=== PATIENT | male | born 1955 | race Hispanic/Latino ===

== ENCOUNTER → 2017-07-03 12:48 | Outpatient (CLI) | payer BC, SELFPAY ==
[2017-07-03 14:14] LABS: Absolute Lymphocyte Count 2.64 X10^3/ul (0.83-4.51); Absolute Neutrophil Count 4.7 X10^3/uL (2.0-7.7); Basophil# 0.01 X10^3/uL; Basophil% 0.1 % (0-1); Eosinophil# 0.09 X10^3/uL; Eosinophils% 1.1 % (0-5); Hemoglobin 15.7 g/dl (13.0-16.5); Lymphocyte # 2.64 X10^3/ul (4.0); Mean Corp Hgb Conc 33.4 g/gl (32-36); Mean Corpuscular Volume 92.9 fL (80-94); Mean Platelet Vol. 11.6 fl (6.2-12.0); Monocyte# 0.58 X10^3/uL; Monocyte% 7.3 % (0-10); Neutrophil # 4.65 X10^3/uL (2.7-7.7); Neutrophil % 58.1 % (47-70); Platelet Count 175 K/mm3 (150-450); RBC Distribution Width CV 13.7 % (11.6-14.6); RBC Distribution Width SD 46.5 fl (35.1-43.9); Red Blood Count 5.06 M/mm3 (4.6-6.2)
[2017-07-03 14:15] LABS: POSITIVE COUNT NO; POSITIVE DIFFERENTIAL NO; POSITIVE MORPHOLOGY NO
[2017-07-03 14:31] LABS: AST(SGOT) 23 U/L (15-37); Alanine Aminotransfer ALT/SGPT 41 U/L (16-61); Albumin, Serum 4.3 g/dL (3.2-5.0); Alkaline Phosphatase 84 U/L (45-117); Bilirubin, Direct 0.12 mg/dL (0.00-0.30); Creatinine, Serum 0.63 mg/dL (0.70-1.30); EST Glomerular Filtration Rate 135 mL/min (>60); Est Glom Filt Rate - Afr Amer 164 mL/min (>60); Globulin 3.3 g/dL (2.2-4.2); Protein, Total 7.6 g/dL (6.4-8.2)
== END ==
PROVIDERS: Family Provider Internal Medicine; PCP Internal Medicine; Visit Provider Internal Medicine Rheumatology
DX: Z79.899 Other long term (current) drug therapy (principal)
CPT/HCPCS: 36415; 80076; 82565; 85025

== ENCOUNTER → 2017-08-16 10:03 | Outpatient (CLI) | payer BC, SELFPAY ==
[2017-08-16 12:33] LABS: ALB/GLOB Ratio 1.4 RATIO (0.9-2.4); AST(SGOT) 22 U/L (15-37); Alanine Aminotransfer ALT/SGPT 37 U/L (16-61); Albumin, Serum 4.4 g/dL (3.2-5.0); Alkaline Phosphatase 81 U/L (45-117); Anion Gap 5 (5-15); BUN 17 mg/dL (7-18); BUN/Creat Ratio 25.1 RATIO (10-20); Chloride 105 mmol/L (98-107); Creatinine, Serum 0.68 mg/dL (0.70-1.30); EST Glomerular Filtration Rate 125 mL/min (>60); Est Glom Filt Rate - Afr Amer 152 mL/min (>60); Globulin 3.2 g/dL (2.2-4.2); Glucose 117 mg/dL (74-106); Potassium 3.8 mmol/L (3.5-5.1); Protein, Total 7.6 g/dL (6.4-8.2); Sodium Level 137 mmol/L (136-145)
[2017-08-16 12:35] LABS: Absolute Lymphocyte Count 2.87 X10^3/ul (0.83-4.51); Absolute Neutrophil Count 3.3 X10^3/uL (2.0-7.7); Basophil# 0.01 X10^3/uL; Basophil% 0.1 % (0-1); Eosinophil# 0.08 X10^3/uL; Eosinophils% 1.1 % (0-5); Hematocrit 49.3 % (40-54); Hemoglobin 16.7 g/dl (13.0-16.5); Lymphocyte # 2.87 X10^3/ul (4.0); Lymphocyte % 40.7 % (19-41); Mean Corp Hgb Conc 33.9 g/gl (32-36); Mean Corpuscular Hgb 31.3 pg (27.0-32.0); Mean Corpuscular Volume 92.5 fL (80-94); Monocyte# 0.71 X10^3/uL; Monocyte% 10.1 % (0-10); Neutrophil # 3.34 X10^3/uL (2.7-7.7); Neutrophil % 47.4 % (47-70); POSITIVE COUNT NO; POSITIVE DIFFERENTIAL NO; POSITIVE MORPHOLOGY NO; Platelet Count 157 K/mm3 (150-450); RBC Distribution Width CV 13.6 % (11.6-14.6); RBC Distribution Width SD 44.9 fl (35.1-43.9); Red Blood Count 5.33 M/mm3 (4.6-6.2); White Blood Count 7.1 K/mm3 (4.4-11.0)
== END ==
PROVIDERS: Family Provider Internal Medicine; PCP Internal Medicine
DX: M05.741 Rheumatoid arthritis with rheumatoid factor of right hand without organ or systems involvement (principal); M05.742 Rheumatoid arthritis with rheumatoid factor of left hand without organ or systems involvement
CPT/HCPCS: 36415; 80053; 85025

== ENCOUNTER → 2020-09-12 10:07 | Outpatient (CLI) | payer BC, SELFPAY ==
--- NOTE | 2020-09-12 10:45 | MRI_ITS ---
STUDY: MR PELVIS WITH AND WITHOUT CONTRAST (PROSTATE) REASON FOR EXAM: Male, 64 years old. Elevated PSA TECHNIQUE: Standardized multiparametric prostate MRI with T1, T2, DWI/ADC sequences were obtained in 3 orthogonal planes, and dynamic contrast enhancement sequences. 19 ml of Dotarem contrast material was administered intravenously for the contrast portion of the examination. COMPARISON: None. FINDINGS: The prostate volume measures 49.6 mm3. The contours of the prostate gland are smooth. There is mass effect on the bladder base. The transition zone is homogenous. 10 x 10 mm ill-defined nodule in the right posterior lateral transitional zone of the prostate apex (image 17 series 7) with ill-defined contrast enhancement (image 28 series 13) and focal restricted diffusion (image 107 series 9). PI-RADS DWI score 4 - Focal markedly hypointense on ADC and markedly hyperintense on high b-value DWI; < 1.5 cm on axial. PI-RADS T2W score 4 - Non-circumscribed, homogeneous, moderately hypointense, and <1.5 cm in greatest dimension. Contrast enhancement (+) Focal, earlier or contemporaneous with enhancement of adjacent normal prostatic tissues, and corresponding to a suspicious finding on T2WI and/or DWI. The peripheral zone is homogenous. PI-RADS DWI score 2 - Linear/wedge shaped hypointense on ADC and/or linear/wedge shaped hyperintense on high b-value DWI. PI-RADS T2W score 2 - Linear, wedge-shaped, or diffuse mild hypointensity, usually with indistinct margin. Contrast enhancement no early or contemporaneous enhancement; or diffuse multifocal enhancement NOT corresponding to a focal finding on T2W and/or DWI or focal enhancement responding to a lesion demonstrating features of BPH onT2WI (including features of extruded BPH in the PZ). The seminal vesicles demonstrate normal margins and T2 signal pattern. No mass lesion or invasion depicted. The rectoprostatic angles are normal. Urinary bladder is normal without wall thickening. The vascular structures of the are normal. The visualized hollow viscus structures are normal. No bone marrow edema or mass lesion depicted. MRI/Pelvis W/WO Contrast IMPRESSION: 1. PIRADS v2.1 2019 -- 4 - High (clinically significant cancer is likely). 10 x 10 mm right posterolateral apical hypointense T2 nodule with restricted diffusion and contrast enhancement. Electronically Signed: Romero Jimenez MD (Brooks) at 9:30 EDT , Service support ,
[2020-09-12 11:16] LABS: CREATININE FINGERSTICK 0.8 mg/dL (0.70-1.30); EGFR FINGERSTICK > 60.0000 mL/min (>60)
== END ==
PROVIDERS: PCP Internal Medicine; Referring Provider Urology; Visit Provider Urology
DX: R97.20 Elevated prostate specific antigen [PSA] (principal)
CPT/HCPCS: 72197; A9575

== ENCOUNTER 2020-12-21 10:10 | Day surgery (SDC) | payer BC, SELFPAY ==
--- NOTE | 2020-12-16 09:18 | EKG12_ITS ---
Test Reason : PRE OP Blood Pressure : / mmHG Vent. Rate : 083 BPM Atrial Rate : 083 BPM P-R Int : 134 ms QRS Dur : 140 ms QT Int : 420 ms P-R-T Axes : 055 074 076 degrees QTc Int : 493 ms Normal sinus rhythm Tvlok-Axxupwdky-Opupu Abnormal ECG Confirmed by CHRIS BURRIS, DEBORA ([id number]), visual effects editor THANIA BARRON ([id number]) on 12/19/2020 1:09:44 PM Referred By: Suhas Solis Confirmed By:DEBORA PEREZ MD
[2020-12-16 10:42] LABS: Anion Gap 3 (5-15); BUN 21 mg/dL (7-18); BUN/Creat Ratio 34.4 RATIO (10-20); Chloride 106 mmol/L (98-107); Creatinine, Serum 0.61 mg/dL (0.70-1.30); EST Glomerular Filtration Rate 140 mL/min (>60); Est Glom Filt Rate - Afr Amer 170 mL/min (>60); Glucose 131 mg/dL (74-106); Potassium 3.9 mmol/L (3.5-5.1); Sodium Level 137 mmol/L (136-145)
[2020-12-16 10:50] LABS: Hemoglobin A1c 8.7 % (3.8-5.6)
[2020-12-21] VITALS (7 sets, daily range): BP systolic 117–164; BP diastolic 72–87; PULSE 69–83; RESP 16–18; TEMP 35.9–36.9; O2SAT 95–97; BMI 29.2
[2020-12-21] MEDS: Lactated Ringers 1,000 ML 100 ML IV ×2 (10:52→14:45)
[2020-12-21 11:11] LABS: Bedside Glucose 177 mg/dL (70-110)
--- NOTE | 2020-12-21 12:30 | PROS_PTH ---
PATIENT: ANTON RUTLEDGE LOC: [facility] [place] U#:[id number] AGE/SX: 65/M ROOM: RE12/21/[address]: Dr. Suhas Solis MD : [id number] BED: DIS: 12/21/2020 SPEC #: [id number] RECD: 12/22/20 08:48 STATUS: TONY SANCHEZ #: [id number] CURTIS: 12/21/20 12:[address]: Suhas Solis DEPT: SURGICAL PATHOLOGY RECD BY: Sarah Min ENTERED: 12/22/20 10:08 SP TYPE: TURP OTHR DR: Dr. Ross Flynn, DO Tissues: Prostate, NOS Procedures: Surgery Specimen Level IV HEADER OPERATION: Cysto, TUR prostate, Olympus PRE-OP DIAGNOSIS: BPH TISSUE SUBMITTED: Prostate tissue MICROSCOPIC DIAGNOSIS Prostate tissue, TUR: Benign prostatic hyperplasia, glandular and stromal type. A fragment of stone (grossly only). SJ:[place] 12/23/2020 MICROSCOPIC DESCRIPTION Slides are reviewed. GROSS DESCRIPTION Received is one container labeled with the patient's name and designated prostate tissue. The specimen consists of multiple irregular fragments of pink-ortiz, rubbery, soft tissue that in aggregate weigh 3.2 gm and measure in aggregate 3 x 3 x 0.5 cm. A fragment of ortiz-brown stone is also noted measuring 0.5 x 0.4 x 0.3 cm. The entire soft tissue is submitted in three cassettes. The stone is for gross identification only. / ADRIANA:[place] 12/22/20 TC:5 CPT: 40063
[2020-12-21] MEDS: Cefazolin 2 GM in 0.9% Normal Saline 100 ML IV (13:21)
--- NOTE | 2020-12-21 13:21 | PCM.HP.STD ---
HPI - General HPI Narrative ANTON RUTLEDGE, is a 65 M who presents for transurethral resection of the prostate BPH with obstruction ` PFSH Medical History (Updated 12/21/20 @ 13:[address] Suhas Solis MD) Alcohol use Arthritis Diabetes Former smoker Gastric reflux High cholesterol History of diverticulitis History of irregular heartbeat History of ulceration Hx of thyroid nodule Hypertension Rash Rheumatoid arthritis Wears glasses Home Medications Farxiga 5 mg PO DAILY 09/04/16 [History Last Taken 12/20/20] atorvastatin 40 mg PO QHS 09/04/16 [History Last Taken 12/20/20] losartan [Cozaar] 50 mg PO DAILY 09/04/16 [History Last Taken 12/21/20 09:00] Humira(CF) Pen 40 mg SUBCUT .EVERY OTHER WEEK 12/14/20 [History Last Taken 12/09/20] Janumet XR 1 tab PO DAILY 12/14/20 [History Last Taken 12/20/20] Tresiba FlexTouch U-100 30 unit SUBCUT DAILY 12/14/20 [History Last Taken 12/20/20] alfuzosin 10 mg PO DAILY 12/14/20 [History Last Taken 12/20/20] amlodipine 10 mg PO DAILY 12/14/20 [History Last Taken 12/21/20 09:00] meloxicam 15 mg PO DAILY 12/14/20 [History Last Taken 12/20/20] multivitamin 1 tab PO DAILY 12/14/20 [History Last Taken 12/20/20] cephalexin 500 mg PO BID #20 cap 12/21/20 [Rx Last Taken Unknown] oxycodone-acetaminophen 1 tab PO Q6H PRN 7 Days #14 tab 12/21/20 [Rx Last Taken Unknown] Allergy/AdvReac Type Severity Reaction Status Date / Time ciprofloxacin [From Cipro] Allergy Nausea/Vom/ Verified 12/14/20 11:58 Diarrhea ciprofloxacin HCl Allergy Nausea/Vom/ Verified 12/14/20 11:58 [From Cipro] Diarrhea codeine Allergy Itching Verified 12/14/20 11:58 Surgical History (Updated 12/14/20 @ 12:15 by Maggie Lindsey) Hx laparoscopic cholecystectomy Hx of colectomy Social History Smoking Status: Former smoker ROS Constitutional Constitutional: Denies chills, fever(s) or malaise Eyes Eyes: Denies blurry vision or change in vision ENT HEENT: Reports none Cardiovascular Cardiovascular: Denies chest pain or palpitations Respiratory/Chest Respiratory/Chest: Denies cough or shortness of breath with exertion Gastrointestinal Gastrointestinal: Denies abdominal pain, constipation or diarrhea Musculoskeletal Musculoskeletal: Denies back pain, joint stiffness or joint swelling Integumentary Integumentary: Denies dry skin, jaundice, lesions or rash Neurologic Neurologic: Denies confusion, syncope or weakness Psychiatric Psychiatric: Reports none; Denies anxiety or depression Endocrine Endocrinology: Denies excessive sweating, fatigue or flushing Hematologic/Lymphatic Hematologic/Lymphatic: Denies anemia, easy bleeding or easy bruising Vital Signs Vital Signs Vital Signs: 12/21/20 10:38 Temperature 98.5 F Temperature Source Temporal Pulse Rate 83 Respiratory Rate 16 Respiratory Pattern Normal Blood Pressure 164/72 H Blood Pressure Mean 102 Blood Pressure Source Monitor Blood Pressure Position Semi-Fowlers Blood Pressure Location Right Arm Pulse Ox 97 Oxygen Delivery Method Room Air Weight Weight: 95.254 kg Body Mass Index (BMI) 29.2 Physical Exam Const alert and oriented x3 General Appearance: cooperative HEENT normocephalic, head/scalp atraumatic, EAC's normal and TM's normal bilaterally Eyes PERRL and EOMs intact bilaterally Pupil: sluggish Neck no lymphadenopathy, supple and no JVD General: trachea midline Lymph Lymphatic: no lymphadenopathy noted, lymphedema and lymphadenopathy Resp normal respiratory effort, normal air movement and clear to auscultation bilaterally Cardio regular rate, regular rhythm and peripheral pulses 2+ throughout GI soft to palpation, non-tender and non-distended Extremity normal capillary refill and no clubbing, cyanosis or edema General Extremity: no tenderness to palpation of joints or extremities Skin no rashes or lesions noted General Skin Exam: turgor normal Lesions: no lesions Rashes: no rashes Neuro CN's II-XII intact bilaterally Speech: speech normal Motor Exam: strength 5/5 throughout; Negative for general weakness Psych thought process normal, cooperative and affect normal Appearance: appropriate Results Lab / Micro Data Result Diagrams: 12/16/20 09:35 12/16/20 09:35 Labs: Laboratory Results - last 24 hr 12/21/20 10:50: POC Glucose 177 H Assessment & Plan Assessment/Plan (1) BPH (benign prostatic hyperplasia):
--- NOTE | 2020-12-21 13:22 | PCM.DC ---
Discharge Instructions Diet Discharge Diet: No restrictions Activity Discharge Activity: Return to Normal Activity and May Not Drive (while taking narcotic pain medications.) Dressing / Incision Call your doctor if you observe: Fever of 101 or Higher Catheter: Noe to leg bag and Noe to large bag Follow Up Care Please Follow Up With: Suhas Solis MD When: Call [phone] for an appointment Test Results: Test results from this visit will be discussed in further detail at your follow-up appointment, if applicable. Discharge Plan Admission Primary Reason for Your Visit: TERE Attending Provider: Suhas Solis Primary Care Provider: Ross Flynn Instructions Patient Instructions: TERE Home Recovery Discharge Orders/Prescriptions Prescriptions: New cephalexin 500 mg capsule 500 mg PO BID Qty: 20 RF: 0 oxycodone-acetaminophen 5-325 mg tablet 1 tab PO Q6H PRN (Reason: pain) 7 Days Qty: 14 RF: 0 Continued losartan [Cozaar] 50 MG tablet 50 mg PO DAILY RF: 0 atorvastatin 40 MG tablet 40 mg PO QHS RF: 0 Farxiga 5 MG tablet 5 mg PO DAILY RF: 0 multivitamin Tablet 1 tab PO DAILY RF: 0 meloxicam 15 mg tablet 15 mg PO DAILY RF: 0 amlodipine 10 mg tablet 10 mg PO DAILY RF: 0 alfuzosin 10 mg tablet extended release 24 hr 10 mg PO DAILY RF: 0 Janumet XR 100-1,000 mg tablet, ER multiphase 24 hr 1 tab PO DAILY RF: 0 Tresiba FlexTouch U-100 100 unit/mL (3 mL) insulin pen 30 unit SUBCUT DAILY RF: 0 Humira(CF) Pen 40 mg/0.4 mL pen injector kit 40 mg SUBCUT .EVERY OTHER WEEK RF: 0 Referrals / Follow Up: Ross Flynn DO [Primary Care Provider] - Suhas Solis MD [STAFF PHYSICIAN] - Disposition Disposition (needs filled in before D/C Order can be placed): Home, Self Care
--- NOTE | 2020-12-21 14:33 | PCM.OPRPT ---
Report of Operation Date of Procedure: 12/21/20 Pre-Operative Diagnosis: bph and large bladder stone Post-Operative Diagnosis: same Surgery/Procedure Performed:: turp Description of Surgical Findings:: In the preoperative setting I discussed with the patient how the surgery would be done with expect afterwards. We discussed how a prostate resection is done and we discussed the risk of the surgery including, bleeding, infection, retrograde ejaculation, changes with ejaculation or intercourse,. We discussed the possibility that the resection of the prostate may not alleviate his urinary symptoms. We discussed the small risk of developing scar tissue along the urethral channel and strictures. We also discussed the chance of the prostate could grow back and he may need further surgery or treatment in the future for prostate problems. Patient was taken back to the operating room, timeout procedure was performed, he was identified and marked and placed on the operating room table. He underwent general anesthesia. He was placed in dorsolithotomy position. Penis and testicles were prepped and draped in usual sterile fashion. Went into the bladder using the visual obturator with a resectoscope. Once inside the bladder identified the right and left ureteral orifice. I then identified the prostate and the anatomy of the prostate. I marked out the area of the sphincter and the verumontanum was identified. I then proceeded with the prostate resection first resected the median lobe. And then resected the right lobe of the prostate. Then to resect the left lobe of the prostate. I then resected the apical tissue of the prostate. Made sure that there was no injury to the sphincter or the verumontanum was still intact. At the end of the resection all the chips were Ellik out of the bladder. I then went into the bladder using a 24 Armenian cystoscope. We used the laser bridge through the scope for continuous irrigation. Then using the laser bridge we introduced a laser fiber into the bladder and the stone in the bladder was trapped against the back wall. The stone measured 3cm in size. The stone was then lasered using laser lithotripsy the small little pieces all the pieces were evacuated on the bladder. After all the stones were removed then the scope was removed there was minimal bleeding. I then identified the left and right ureteral orifice and these were confirmed to be in good position and effluxing and not injured. The resectoscope was removed, a 20 Armenian catheter was placed into the bladder. And the urine was fairly light pink color and draining normally. He was taken back to the PACU in good condition. Surgeon: marcos Drains: 20 fr spicer Admit VTE Documentation VTE Present on Admission: No VTE Mechan Device Prophylaxis: SCD's
[2020-12-21 15:06] LABS: Bedside Glucose 145 mg/dL (70-110)
== END 2020-12-21 17:40 | disposition home or self-care (01) ==
LOC: SDC 10:10 → AC 10:11
PROVIDERS: Anesthesiology; PCP Internal Medicine; Referring Provider Urology; Visit Provider Urology
PROC: (CPT 52318; principal; 2020-12-21 12:20)
DX: N40.1 Benign prostatic hyperplasia with lower urinary tract symptoms (principal); N13.8 Other obstructive and reflux uropathy; N21.0 Calculus in bladder; M19.90 Unspecified osteoarthritis, unspecified site; E11.9 Type 2 diabetes mellitus without complications; K21.9 Gastro-esophageal reflux disease without esophagitis; E78.00 Pure hypercholesterolemia, unspecified; I10 Essential (primary) hypertension; M06.9 Rheumatoid arthritis, unspecified; Z79.899 Other long term (current) drug therapy; Z87.891 Personal history of nicotine dependence
CPT/HCPCS: 00914; 52318; 52630; 36415; 80048; 82962; 83036; 88305; 93005; J7120; J2405

== ENCOUNTER 2021-02-10 01:14 | Inpatient (IN) | payer BC, MEDICARE, SELFPAY ==
[2021-02-10] VITALS (8 sets, daily range): BP systolic 145–185; BP diastolic 74–106; PULSE 72–86; RESP 16–20; TEMP 36.4–36.9; O2SAT 95–98; BMI 28.3; BMI 27.9
[2021-02-10 02:05] LABS: Absolute Lymphocyte Count 2.14 X10^3/uL (0.83-4.51); Basophil# 0.02 X10^3/uL; Basophil% 0.3 % (0-1); Eosinophil# 0.13 X10^3/uL; Eosinophils% 1.9 % (0-5); Hematocrit 44.1 % (40-54); Lymphocyte # 2.14 X10^3/ul (0.83-4.51); Mean Corpuscular Hgb 30.7 pg (27.0-32.0); Mean Corpuscular Volume 90.2 fL (80-94); Mean Platelet Vol. 10.7 fl (6.2-12.0); Monocyte# 0.56 X10^3/uL; Monocyte% 8.1 % (0-10); NRBC Flagged by Analyzer 0 % (0-5); Neutrophil # 4.01 X10^3/uL (2.7-7.7); Platelet Count 177 K/mm3 (150-450); RBC Distribution Width SD 42.8 fl (35.1-43.9); Red Blood Count 4.89 M/mm3 (4.6-6.2); White Blood Count 6.9 K/mm3 (4.4-11.0)
[2021-02-10 02:23] LABS: Anion Gap 6 (5-15); BUN 28 mg/dL (7-18); BUN/Creat Ratio 37.6 RATIO (10-20); Calcium,Total 8.7 mg/dL (8.5-10.1); Chloride 105 mmol/L (98-107); Creatinine, Serum 0.74 mg/dL (0.70-1.30); EST Glomerular Filtration Rate 111 mL/min (>60); Est Glom Filt Rate - Afr Amer 135 mL/min (>60); Estimated Creatinine Clearance 76.35 ml/min; Glucose 228 mg/dL (74-106); Potassium 3.5 mmol/L (3.5-5.1); Sodium Level 138 mmol/L (136-145)
[2021-02-10 02:24] LABS: Mucous, Urine 0 SEEN /hpf (<or=2+); Squamous Epithelial Cells - UA 0 SEEN /hpf (0-5)
[2021-02-10 02:32] LABS: Color, Urine Red (Yellow); Glucose, Dipstick 1000 mg/dl (Normal); Ketone-Dipstick Negative (Negative); Leukocyte Esterase-Dipstick 25 /ul (Negative); Nitrite-Dipstick Negative (Negative); Occult Blood-Urine 250 /ul (Negative); Protein-Dipstick 500 mg/dl (Negative); Urine Bilirubin Dipstick Negative (Negative); Urine Clarity Turbid (Clear); Urine Urobilinogen Normal (Normal)
[2021-02-10 02:35] LABS: Amorphous Sediment 3+; Bacteria 2+ /hpf (None Seen); Red Blood Cells-Urine > 100 SEEN /hpf (0-5); White Blood Cells 10-25 SEEN /hpf (0-5)
--- NOTE | 2021-02-10 02:41 | EX.ED.GUMALE ---
HPI History of Present Illness Chief Complaint: Complaint Informant: patient and spouse/S.O. Narrative Narrative: 65-year-old male presents with hematuria. Patient and his tell me that at the end of November he underwent a TURP with Dr. Solis. He has been doing well. Tonight at work he began to have howard hematuria with clots. States he believes he has been able to empty his bladder. The clots have continued. He denies being on a blood thinner. No fevers. No dysuria. PFSH PFSH Medical History (Updated 02/10/21 @ 02:[address] Jose Barnett DO) Alcohol use Arthritis Diabetes Former smoker Gastric reflux High cholesterol History of diverticulitis History of irregular heartbeat History of ulceration Hx of thyroid nodule Hypertension Rash Rheumatoid arthritis Wears glasses Home Medications Farxiga 5 mg PO DAILY 09/04/16 [History Last Taken 12/20/20] atorvastatin 40 mg PO QHS 09/04/16 [History Last Taken 12/20/20] losartan [Cozaar] 50 mg PO DAILY 09/04/16 [History Last Taken 12/21/20 09:00] Humira(CF) Pen 40 mg SUBCUT .EVERY OTHER WEEK 12/14/20 [History Last Taken 12/09/20] Janumet XR 1 tab PO DAILY 12/14/20 [History Last Taken 12/20/20] Tresiba FlexTouch U-100 30 unit SUBCUT DAILY 12/14/20 [History Last Taken 12/20/20] amlodipine 10 mg PO DAILY 12/14/20 [History Last Taken 12/21/20 09:00] meloxicam 15 mg PO DAILY 12/14/20 [History Last Taken 12/20/20] multivitamin 1 tab PO DAILY 12/14/20 [History Last Taken 12/20/20] Allergy/AdvReac Type Severity Reaction Status Date / Time ciprofloxacin [From Cipro] Allergy Nausea/Vom/ Verified 02/10/21 01:17 Diarrhea ciprofloxacin HCl Allergy Nausea/Vom/ Verified 02/10/21 01:17 [From Cipro] Diarrhea codeine Allergy Itching Verified 02/10/21 01:17 Surgical History (Updated 02/10/21 @ 02:[address] Jose Barnett DO) Hx laparoscopic cholecystectomy Hx of colectomy S/P TURP Social History (Updated 02/10/21 @ 02:[address] Jose Barnett, DO) Smoking Status: Former smoker substance use type: does not use ROS ROS ED Constitutional Constitutional ED: Denies chills or weight loss Eyes Eyes: Denies change in vision or diplopia ENT ENT ED: Denies ear pain, rhinorrhea or sore throat Cardiovascular Cardiovascular: Denies chest pain, orthopnea, palpitations or racing heartbeat Respiratory/Chest Respiratory/Chest: Denies cough, dyspnea or orthopnea Gastrointestinal Gastrointestinal: Denies abdominal pain, diarrhea, nausea or vomiting Genitourinary Genitourinary ED: Reports hematuria; Denies dysuria or urinary frequency Musculoskeletal Musculoskeletal: Denies arthralgias or myalgias Integumentary Denies abscess or rash Neurologic Neurologic: Denies headache(s) or weakness Psychiatric Psychiatric: Denies anxiety, depression, suicidal ideation or suicidal thoughts Endocrine Endocrinology: Denies polydipsia, polyphagia or polyuria Allergic/Immunologic Allergic/Immunologic ED: Denies mouth swelling, tongue swelling or urticaria EXAM Physical Exam Const Vital Signs: 02/10/21 01:15 02/10/21 04:19 Temperature 97.5 F L Temperature Source Oral Pulse Rate 86 76 Respiratory Rate 16 16 Blood Pressure 175/91 H Blood Pressure Mean 119 Pulse Ox 96 98 Oxygen Delivery Method Room Air Room Air Positive well nourished and well developed General Appearance ED: well developed HEENT Reports normocephalic, head/scalp atraumatic and moist mucous membranes Eyes PERRL and EOMs intact bilaterally Neck no lymphadenopathy, supple and no JVD Resp normal respiratory effort and clear to auscultation bilaterally Cardio regular rate, regular rhythm and no murmurs GI normal to inspection, nondistended, normoactive bowel sounds and non-tender Palpation: soft Back/Spine no CVA tenderness and normal ROM Extremity normal to inspection General Extremety ED: Negative for edema General Extremity: Negative for edema Neuro oriented x3 and CN's II-XII intact bilaterally Sensorium / Orientation: alert Motor Exam: strength 5/5 throughout Psych mental status grossly normal Mood & Affect: Negative for depressed or tearful Skin no rashes or lesions noted and no wounds MDM MDM MDM Narrative Medical decision making narrative: Patient's white blood cell count of 6.9. Glucose 228 with creatinine 0.74. Urinalysis shows greater than 100 red blood cells 10-25 white blood cells and 2+ bacteria. This is nitrate negative. It was sent for culture patient received a dose of Rocephin. For the hematuria attempted a 24 Guamanian three-way catheter was made unable to successfully pass it a 22 Guamanian three-way was placed. He has undergone continuous bladder irrigation for just over 2 hours and the urine is still a strawberry lemonade. I spoke with the patient's urologist Dr. Solis and the plan will be admission for CBI. Lab Data Attestation: I reviewed the patient's lab results. Labs: Laboratory Results - last 24 hr 02/10/21 02/10/21 02/10/21 01:50 01:50 02:20 WBC 6.9 RBC 4.89 Hgb 15.0 Hct 44.1 MCV 90.2 MCH 30.7 MCHC 34.0 RDW Std Deviation 42.8 RDW Coeff of Darryl 13.0 Plt Count 177 MPV 10.7 Immature Gran % (Auto) 0.700 Neut % (Auto) 58.0 Lymph % (Auto) 31.0 [place] % (Auto) 8.1 Eos % (Auto) 1.9 Baso % (Auto) 0.3 Absolute Neuts (auto) 4.0 Absolute Lymphs (auto) 2.14 Nucleated RBC % 0 Sodium 138 Potassium 3.5 Chloride 105 Carbon Dioxide 27.0 Anion Gap 6 BUN 28 H Creatinine 0.74 Estim Creat Clear Calc 76.35 Est GFR (MDRD) Af Amer 135 Est GFR (MDRD) Non-Af 111 BUN/Creatinine Ratio 37.6 H Glucose 228 H Calcium 8.7 Urine Color Red Urine Clarity Turbid Urine pH 6.0 Ur Specific [place] 1.020 Urine Protein 500 H Urine Glucose (UA) 1000 H Urine Ketones Negative Urine Occult Blood 250 H Urine Nitrite Negative Urine Bilirubin Negative Urine Urobilinogen Normal Ur Leukocyte Esterase 25 H Urine RBC > 100 SEEN Urine WBC 10-25 SEEN Ur Squamous Epith Cells 0 SEEN Amorphous Sediment 3+ Urine Bacteria 2+ Urine Mucus 0 SEEN Discharge Plan Triage Chief Complaint: Complaint ED Provider: Jose Barnett Dx/Rx/DC Orders Clinical Impression: Acute hemorrhagic cystitis Prescriptions: No Action losartan [Cozaar] 50 MG tablet 50 mg PO DAILY RF: 0 atorvastatin 40 MG tablet 40 mg PO QHS RF: 0 Farxiga 5 MG tablet 5 mg PO DAILY RF: 0 multivitamin Tablet 1 tab PO DAILY RF: 0 meloxicam 15 mg tablet 15 mg PO DAILY RF: 0 amlodipine 10 mg tablet 10 mg PO DAILY RF: 0 Janumet XR 100-1,000 mg tablet, ER multiphase 24 hr 1 tab PO DAILY RF: 0 Tresiba FlexTouch U-100 100 unit/mL (3 mL) insulin pen 30 unit SUBCUT DAILY RF: 0 Humira(CF) Pen 40 mg/0.4 mL pen injector kit 40 mg SUBCUT .EVERY OTHER WEEK RF: 0 Primary Care Provider: Ross Flynn Referrals: Ross Flynn DO [Primary Care Provider] - Disposition Disposition: Acute Care Hospital [facility]
[2021-02-10] MEDS: Ceftriaxone 1 GM/50 ML BAG IV (04:22)
--- NOTE | 2021-02-10 06:18 | ED.RN ---
made aware of admission
--- NOTE | 2021-02-10 07:04 | PCM.HP.BLA ---
History and Physical Date of Admission: 02/10/21 65-year-old male status post TURP in November last night presented to the emergency room with severe bleeding Noe catheter was placed and he was admitted with 3-way irrigation. We will put him on antibiotics and admit him for irrigation. Review of systems no change Review medications no change Past medical history surgical history no change On exam abdomen soft benign penis is normal Noe catheter placed on continuous irrigation light pink urine no clots 65-year-old male status post TURP admit for bleeding cause and source of bleeding is unknown to me patient states he was not doing any heavy lifting We will start him on Amicar Proscar antibiotics and continuous irrigation till clears.
[2021-02-10] MEDS: Multivitamins,Therapeutic Tablet 1 TABLET PO (09:01)
[2021-02-10] MEDS: Empagliflozin 10 MG Tablet PO (09:01)
[2021-02-10] MEDS: Losartan Potassium 50 MG Tablet PO (09:01)
[2021-02-10] MEDS: amLODIPine 10 MG Tablet PO (09:01)
[2021-02-10] MEDS: Finasteride 5 MG Tablet PO (09:02)
[2021-02-10] MEDS: Cefazolin 1 GM/50 ML BAG IV ×2 (13:59→21:43)
--- NOTE | 2021-02-10 14:55 | CASEMGMT ---
NITZA RAND Assessment: Face to Face with pt for initial transition planning/care coordination assessment. RN KEYONA introduced self and role at [facility], pt voices understanding and consents to assessment. Pt is A/O x4 and answers all questions appropriately at this time. Pt sitting up in bed in no distress. Care providers, pharmacy, and demographics verified/updated. Admitting Dx: hematuria PCP:Rina Specialists:philipp Solis; Kay[facility] Preferred Pharmacy: [facility] Insurance: MARCOS Ayala Prescription Benefit: yes LW/HPOA: Pt states he has a LW/DPOA. States his DPOA is his Odalys Ngo. He is aware that it is not on file at [facility] and may bring in to be scanned into the chart. LNOK: Odalys Ngo, Living Arrangements: Pt lives with in a single story apartment with one step to enter. Pt reports being I in ADL's and denies concerns at home. Transportation: Pt drives self and denies concerns with transportation. DME/HHC/SNF: Pt denies having any DME in the home, previous HHC or SNF stays. Pt states he works part time. He drinks a couple of beers a week, denies cigarette usage, street drug or illegal drug use. Pt states no concerns with going home at time of dc. Pt states no further concerns/needs. CM to follow. Advised pt to ask CM if any further question/concerns/needs arise, voices understanding. Pt Goal: Home Plan: Home
[2021-02-10] MEDS: metFORMIN (XR) 500 MG Tablet 1000 MG PO (17:34)
[2021-02-10] MEDS: LINAGLIPTIN 5 MG TABLET PO (17:34)
[2021-02-10] MEDS: Meloxicam 15 MG Tablet PO (21:45)
[2021-02-10] MEDS: Atorvastatin Calcium 40 MG Tablet PO (21:45)
[2021-02-11 05:00] VITALS: BP 155/81; PULSE 80; RESP 18; TEMP 36.6; O2SAT 96
[2021-02-11] MEDS: Cefazolin 1 GM/50 ML BAG IV (05:30)
[2021-02-11 07:00] VITALS: RESP 18
[2021-02-11 07:32] VITALS: BP 158/91; PULSE 72; RESP 18; TEMP 36.2; O2SAT 98
[2021-02-11] MEDS: Multivitamins,Therapeutic Tablet 1 TABLET PO (07:37)
--- NOTE | 2021-02-11 09:05 | PCM.DC ---
Discharge Instructions Diet Discharge Diet: Light diet - advance as tolerated Activity Discharge Activity: May Not Drive (while taking narcotic pain medications.) Return to work on:: 02/17/21 Lifting Restrictions: no lifting. Dressing / Incision Call your doctor if you observe: Fever of 101 or Higher Catheter: Spicer to leg bag and Spicer to large bag Drain: [place] Additional Dressing/Incision Instructions:: plug 3 way port, spicer to leg bag and large bag Follow Up Care Please Follow Up With: Suhas Solis MD When: Feb 16 at 9 am to remove spicer. Test Results: Test results from this visit will be discussed in further detail at your follow-up appointment, if applicable. Discharge Plan Admission Admit Date/Time: 02/10/21 06:37 Primary Reason for Your Visit: TURP post op bleeding. Attending Provider: Suhas Solis Primary Care Provider: Ross Flynn Discharge Orders/Prescriptions Prescriptions: New cephalexin 500 mg capsule 500 mg PO BID Qty: 14 RF: 0 Continued losartan [Cozaar] 50 MG tablet 50 mg PO DAILY RF: 0 atorvastatin 40 MG tablet 40 mg PO QHS RF: 0 Farxiga 5 MG tablet 5 mg PO DAILY RF: 0 multivitamin Tablet 1 tab PO DAILY RF: 0 meloxicam 15 mg tablet 15 mg PO QHS RF: 0 amlodipine 10 mg tablet 10 mg PO DAILY RF: 0 Janumet XR 100-1,000 mg tablet, ER multiphase 24 hr 1 tab PO DAILY RF: 0 Tresiba FlexTouch U-100 100 unit/mL (3 mL) insulin pen 30 unit SUBCUT DAILY RF: 0 Humira(CF) Pen 40 mg/0.4 mL pen injector kit 40 mg SUBCUT .EVERY OTHER WEEK RF: 0 Referrals / Follow Up: Ross Flynn DO [Primary Care Provider] - Suhas Solis MD [STAFF PHYSICIAN] - Disposition Discharge Orders: Discharge Patient (Routine); Ordered 02/11/21 Ordered By: Dr. Suhas Solis
[2021-02-11] MEDS: Empagliflozin 10 MG Tablet PO (10:26)
[2021-02-11] MEDS: Losartan Potassium 50 MG Tablet PO (10:26)
[2021-02-11] MEDS: amLODIPine 10 MG Tablet PO (10:27)
[2021-02-11] MEDS: Finasteride 5 MG Tablet PO (10:27)
[2021-02-11 11:29] VITALS: BP 130/70; PULSE 70; RESP 18; TEMP 36.8; O2SAT 98
== END 2021-02-11 11:30 | disposition home or self-care (01) | DRG 696 ==
LOC: ED 05:21 → MS3 09:23
PROVIDERS: Admitting Provider Urology; Emergency Provider Emergency Medicine; PCP Internal Medicine; Visit Provider Urology
DX: R31.0 Gross hematuria (principal); M19.90 Unspecified osteoarthritis, unspecified site; E11.9 Type 2 diabetes mellitus without complications; K21.9 Gastro-esophageal reflux disease without esophagitis; E78.00 Pure hypercholesterolemia, unspecified; I10 Essential (primary) hypertension; M06.9 Rheumatoid arthritis, unspecified; Z87.891 Personal history of nicotine dependence; Z79.1 Long term (current) use of non-steroidal anti-inflammatories (NSAID); Z79.899 Other long term (current) drug therapy
CPT/HCPCS: 51702; 80048; 81001; 85025; 87086; 99285; J7040; J7050; A4216

== ENCOUNTER 2021-02-11 21:24 | Observation (INO) | payer BC, MEDICARE, SELFPAY ==
[2021-02-11 21:24] VITALS: BP 171/93; PULSE 97; RESP 20; TEMP 36.3; O2SAT 97; BMI 28.1
--- NOTE | 2021-02-11 22:12 | EX.ED.GUMALE ---
HPI History of Present Illness Chief Complaint: Noe C/O Narrative Narrative: 55-year-old male presenting with difficulty with his Noe catheter. He states this was placed yesterday. Patient had trouble voiding. He states his Noe catheter had been working. He was admitted overnight last night at [facility] and was discharged home today. He does note that there is some blood in his Noe catheter bag. There has been minimal drainage and some small clots. Patient states he has not made significant urine since about 7 PM. He has some suprapubic fullness. He does not feel ill. Patient denies fever or chills. Patient states that he went home on Keflex and has been taking this and took a dose before he came into the hospital. Patient does relate a recent history of having his prostate shaved. He states this was not due to prostate cancer and that he had from prostate enlargement. This was performed by Dr. Solis. [facility] Medical History Alcohol use Arthritis Diabetes Former smoker Gastric reflux High cholesterol History of diverticulitis History of irregular heartbeat History of ulceration Hx of thyroid nodule Hypertension Rash Rheumatoid arthritis Wears glasses Home Medications Farxiga 5 mg PO DAILY 09/04/16 [History Last Taken 02/08/21] atorvastatin 40 mg PO QHS 09/04/16 [History Last Taken 02/09/21] losartan [Cozaar] 50 mg PO DAILY 09/04/16 [History Last Taken 02/09/21] Humira(CF) Pen 40 mg SUBCUT .EVERY OTHER WEEK 12/14/20 [History Last Taken 01/27/21] Janumet XR 1 tab PO DAILY 12/14/20 [History Last Taken 02/08/21] Tresiba FlexTouch U-100 30 unit SUBCUT DAILY 12/14/20 [History Last Taken 02/08/21] amlodipine 10 mg PO DAILY 12/14/20 [History Last Taken 02/09/21] meloxicam 15 mg PO QHS 12/14/20 [History Last Taken 02/08/21] multivitamin 1 tab PO DAILY 12/14/20 [History Last Taken 02/09/21] cephalexin 500 mg PO BID #14 cap 02/11/21 [Rx Last Taken Unknown] Allergy/AdvReac Type Severity Reaction Status Date / Time ciprofloxacin [From Cipro] Allergy Nausea/Vom/ Verified 02/10/21 01:17 Diarrhea ciprofloxacin HCl Allergy Nausea/Vom/ Verified 02/10/21 01:17 [From Cipro] Diarrhea codeine Allergy Itching Verified 02/10/21 01:17 Surgical History Hx laparoscopic cholecystectomy Hx of colectomy S/P TURP Social History Smoking Status: Former smoker substance use type: does not use ROS ROS ED Constitutional Constitutional ED: Denies chills or fever(s) Eyes Eyes: Denies blurry vision or change in vision ENT ENT ED: Denies rhinorrhea or sore throat Cardiovascular Cardiovascular: Denies chest pain or palpitations Respiratory/Chest Respiratory/Chest: Denies cough or dyspnea Gastrointestinal Gastrointestinal: Reports other Details: Suprapubic fullness. ; Denies diarrhea, nausea or vomiting Genitourinary Genitourinary ED: Reports other Details: Noe catheter not draining well. Leakage at urethral meatus Musculoskeletal Musculoskeletal: Denies arthralgias or myalgias Integumentary Denies rash Neurologic Neurologic: Denies headache(s) or paresthesias EXAM Physical Exam Const Vital Signs: 02/11/21 21:24 Temperature 97.3 F L Temperature Source Temporal Pulse Rate 97 Respiratory Rate 20 H Blood Pressure 171/93 H Blood Pressure Mean 119 Pulse Ox 97 Oxygen Delivery Method Room Air Positive well nourished General Appearance ED: NAD; Negative for pallor HEENT normocephalic and atraumatic Eyes PERRL and EOMs intact bilaterally Resp normal respiratory effort and clear to auscultation bilaterally Cardio regular rate and regular rhythm GI GI Narrative: Suprapubic tenderness. Abdomen nonperitoneal. No CVA tenderness. no CVA tenderness Penis: normal penis; Negative for edematous or erythema Neuro oriented x3 Sensorium / Orientation: alert Psych mental status grossly normal Skin General Skin Exam: Negative for jaundice or pallor MDM MDM MDM Narrative Medical decision making narrative: Patient presenting with obstruction of Noe catheter. He continues to have blood in his Noe catheter. His Noe catheter was irrigated with 700 cc of saline and some small clots were removed. The nurse reports that she is able to hold the fluid back out however he does not spontaneously drain on his own. Patient was discussed with Dr. Solis and he states that since this is a second visit he was recently admitted for this he will take him to the OR tonight. I did order blood work for Dr. Chavez which will be reviewed in the hospital prior to the OR. Patient is admitted in stable condition. Impression: 1. Noe obstruction 2. Hematuria Discharge Plan Triage Chief Complaint: Noe C/O ED Provider: Paul Juarez Dx/Rx/DC Orders Primary Care Provider: Ross Flynn
[2021-02-11 23:22] VITALS: BP 154/77; PULSE 84; RESP 15; TEMP 36.6; O2SAT 92
[2021-02-11 23:48] VITALS: BP 154/77; PULSE 81; RESP 15; TEMP 37; O2SAT 93; BMI 28.1
[2021-02-12] VITALS (10 sets, daily range): BP systolic 139–177; BP diastolic 70–103; PULSE 77–88; RESP 15–16; TEMP 36–37; O2SAT 93–97; BMI 28.3
[2021-02-12 00:15] LABS: Bedside Glucose 182 mg/dL (70-110)
--- NOTE | 2021-02-12 00:29 | PCM.HP.STD ---
HPI - General General Date of Admission: 02/11/21 HPI Narrative ANTON RUTLEDGE, is a 65 M who presents again with bleeding, will take to OR tonight for clot evaluation and cauterization of bleeding from prostate had turp in November, I don't know what caused the bleeding? [facility] Medical History Alcohol use Arthritis Diabetes Former smoker Gastric reflux High cholesterol History of diverticulitis History of irregular heartbeat History of ulceration Hx of thyroid nodule Hypertension Rash Rheumatoid arthritis Wears glasses Home Medications Farxiga 5 mg PO DAILY 09/04/16 [History Last Taken 02/08/21] atorvastatin 40 mg PO QHS 09/04/16 [History Last Taken 02/09/21] losartan [Cozaar] 50 mg PO DAILY 09/04/16 [History Last Taken 02/09/21] Humira(CF) Pen 40 mg SUBCUT .EVERY OTHER WEEK 12/14/20 [History Last Taken 01/27/21] Janumet XR 1 tab PO DAILY 12/14/20 [History Last Taken 02/08/21] Tresiba FlexTouch U-100 30 unit SUBCUT DAILY 12/14/20 [History Last Taken 02/08/21] amlodipine 10 mg PO DAILY 12/14/20 [History Last Taken 02/09/21] meloxicam 15 mg PO QHS 12/14/20 [History Last Taken 02/08/21] multivitamin 1 tab PO DAILY 12/14/20 [History Last Taken 02/09/21] cephalexin 500 mg PO BID #14 cap 02/11/21 [Rx Last Taken Unknown] Allergy/AdvReac Type Severity Reaction Status Date / Time ciprofloxacin [From Cipro] Allergy Nausea/Vom/ Verified 02/10/21 01:17 Diarrhea ciprofloxacin HCl Allergy Nausea/Vom/ Verified 02/10/21 01:17 [From Cipro] Diarrhea codeine Allergy Itching Verified 02/10/21 01:17 Surgical History Hx laparoscopic cholecystectomy Hx of colectomy S/P TURP Social History Smoking Status: Former smoker substance use type: does not use ROS Constitutional Constitutional: Denies chills, fever(s) or malaise Eyes Eyes: Denies blurry vision or change in vision ENT HEENT: Reports none Cardiovascular Cardiovascular: Denies chest pain or palpitations Respiratory/Chest Respiratory/Chest: Denies cough or shortness of breath with exertion Gastrointestinal Gastrointestinal: Denies abdominal pain, constipation or diarrhea Musculoskeletal Musculoskeletal: Denies back pain, joint stiffness or joint swelling Integumentary Integumentary: Denies dry skin, jaundice, lesions or rash Neurologic Neurologic: Denies confusion, syncope or weakness Psychiatric Psychiatric: Reports none; Denies anxiety or depression Endocrine Endocrinology: Denies excessive sweating, fatigue or flushing Hematologic/Lymphatic Hematologic/Lymphatic: Denies anemia, easy bleeding or easy bruising Vital Signs Vital Signs Vital Signs: 02/11/21 21:24 02/11/21 23:22 02/11/21 23:48 Temperature 97.3 F L 97.8 F 98.6 F Temperature Source Temporal Oral Oral Pulse Rate 97 84 81 Respiratory Rate 20 H 15 15 Blood Pressure 171/93 H 154/77 H 154/77 H Blood Pressure Mean 119 102 102 Blood Pressure Source Monitor Blood Pressure Position Semi-Fowlers Blood Pressure Location Right Arm Pulse Ox 97 92 93 Oxygen Delivery Method Room Air Room Air Room Air Weight Weight: 91.626 kg Body Mass Index (BMI) 28.1 Physical Exam Const alert and oriented x3 General Appearance: cooperative HEENT normocephalic, head/scalp atraumatic, EAC's normal and TM's normal bilaterally Eyes PERRL and EOMs intact bilaterally Pupil: sluggish Neck no lymphadenopathy, supple and no JVD General: trachea midline Lymph Lymphatic: no lymphadenopathy noted, lymphedema and lymphadenopathy Resp normal respiratory effort, normal air movement and clear to auscultation bilaterally Cardio regular rate, regular rhythm and peripheral pulses 2+ throughout GI soft to palpation, non-tender and non-distended Extremity normal capillary refill and no clubbing, cyanosis or edema General Extremity: no tenderness to palpation of joints or extremities Skin no rashes or lesions noted General Skin Exam: turgor normal Lesions: no lesions Rashes: no rashes Neuro CN's II-XII intact bilaterally Speech: speech normal Motor Exam: strength 5/5 throughout; Negative for general weakness Psych thought process normal, cooperative and affect normal Appearance: appropriate Results Lab / Micro Data Labs: Laboratory Results - last 24 hr 02/12/21 00:09: POC Glucose 182 H Assessment & Plan Assessment/Plan (1) Acute hemorrhagic cystitis: (2) BPH (benign prostatic hyperplasia):
--- NOTE | 2021-02-12 00:30 | PCM.DC ---
Discharge Instructions Diet Discharge Diet: No restrictions Activity Discharge Activity: Return to Normal Activity and May Not Drive (while taking narcotic pain medications.) Dressing / Incision Call your doctor if you observe: Fever of 101 or Higher Catheter: Noe to leg bag and Noe to large bag Drain: [place] Follow Up Care Please Follow Up With: Suhas Solis MD When: keep appt on Test Results: Test results from this visit will be discussed in further detail at your follow-up appointment, if applicable. Discharge Plan Admission Admit Date/Time: 02/11/21 23:44 Primary Reason for Your Visit: evacuation of blood clots Attending Provider: Suhas Solis Primary Care Provider: Ross Flynn Discharge Orders/Prescriptions Prescriptions: Continued losartan [Cozaar] 50 MG tablet 50 mg PO DAILY RF: 0 atorvastatin 40 MG tablet 40 mg PO QHS RF: 0 Farxiga 5 MG tablet 5 mg PO DAILY RF: 0 multivitamin Tablet 1 tab PO DAILY RF: 0 meloxicam 15 mg tablet 15 mg PO QHS RF: 0 amlodipine 10 mg tablet 10 mg PO DAILY RF: 0 Janumet XR 100-1,000 mg tablet, ER multiphase 24 hr 1 tab PO DAILY RF: 0 Tresiba FlexTouch U-100 100 unit/mL (3 mL) insulin pen 30 unit SUBCUT DAILY RF: 0 Humira(CF) Pen 40 mg/0.4 mL pen injector kit 40 mg SUBCUT .EVERY OTHER WEEK RF: 0 cephalexin 500 mg capsule 500 mg PO BID Qty: 14 RF: 0 Referrals / Follow Up: Ross Flynn DO [Primary Care Provider] - Suhas Solis MD [STAFF PHYSICIAN] -
[2021-02-12 00:34] LABS: International Normalized Ratio 1.1; Prothrombin Time (Protime)PT. 13.1 SECONDS (11.7-14.9)
--- NOTE | 2021-02-12 01:21 | OP.PCM_ITS ---
Report of Operation Date of Procedure: 02/12/21 Pre-Operative Diagnosis: Hemorrhagic prostatitis Post-Operative Diagnosis: Same Surgery/Procedure Performed:: Cystoscopy occasional localized cauterization of the prostate Description of Surgical Findings:: 65-year-old male presented again to the emergency room with bleeding this time I took him to the operating room to hopefully find a source of bleeding cauterized the prostate he had a TURP in November. He states he was not doing any heavy lifting heavy activity and stress spontaneously bleeding had a catheter placed was admitted went home catheter clear but came back with more bleeding difficulty with emptying the bladder so was taken back to the operating room reports performed a cystoscopy today he underwent general anesthesia inside the bladder is a bunch of clots these were all evacuated out I then used the button electrode and cauterized the inside of the prosthetic channel to control for bleeding and at the end of the cauterization there was no bleeding from the prostatic channel and Noe catheter was placed with a 20 [place]an catheter into the bladder on gravity drainage urine was crystal clear take back to PACU in good condition he will go home with a catheter hopefully tomorrow morning. Type of Anesthesia: General Admit VTE Documentation VTE Present on Admission: No VTE Mechan Device Prophylaxis: SCD's VTE Pharm Prophylaxis ordered?: No
[2021-02-12 01:56] LABS: Bedside Glucose 123 mg/dL (70-110)
[2021-02-12] MEDS: 0.9% Normal Saline 1,000 ML 75 ML IV (03:10)
[2021-02-12] MEDS: amLODIPine 10 MG Tablet PO (10:05)
[2021-02-12] MEDS: Cephalexin 500 MG Capsule PO (10:06)
[2021-02-12] MEDS: Losartan Potassium 50 MG Tablet PO (10:06)
[2021-02-12] MEDS: Multivitamins,Therapeutic Tablet 1 TABLET PO (10:06)
[2021-02-12] MEDS: Empagliflozin 10 MG Tablet PO (10:07)
[2021-02-12 10:46] LABS: Bedside Glucose 306 mg/dL (70-110)
--- NOTE | 2021-02-12 12:33 | PCS.PANDOC ---
PANDEMIC DOCUMENTATION INITIATED: Date: 12/12/2020 Time: 190
--- NOTE | 2021-02-12 12:38 | NURSING ---
This nurse is aware that initial order said for pt to go home with spicer bag and leg bag but Dr. Solis called this morning approximately 0830-9:00 and asked how pt was doing. Dr. Solis aware that urine in spicer was tea colored and Dr. Solis said to go ahead and take spicer out and see if he can urinate and if so can send him home.
== END 2021-02-12 13:55 | disposition home or self-care (01) ==
LOC: ED 22:06 → MS3 02-12 00:36
PROVIDERS: Admitting Provider Urology; Emergency Provider Student in an Organized Health Care Education/Training Program; PCP Internal Medicine; Visit Provider Urology
PROC: 0TJB8ZZ Inspection of Bladder, Via Natural or Artificial Opening Endoscopic (ICD-10-PCS; CPT 52000; principal; 2021-02-12 12:30)
DX: N30.01 Acute cystitis with hematuria (principal); N41.9 Inflammatory disease of prostate, unspecified; Z23 Encounter for immunization; N40.0 Benign prostatic hyperplasia without lower urinary tract symptoms; E11.9 Type 2 diabetes mellitus without complications; E78.00 Pure hypercholesterolemia, unspecified; M19.90 Unspecified osteoarthritis, unspecified site; K21.9 Gastro-esophageal reflux disease without esophagitis; M06.9 Rheumatoid arthritis, unspecified; I10 Essential (primary) hypertension; Z79.899 Other long term (current) drug therapy; Z87.891 Personal history of nicotine dependence; Z79.4 Long term (current) use of insulin; Z87.19 Personal history of other diseases of the digestive system; R21 Rash and other nonspecific skin eruption; Z90.49 Acquired absence of other specified parts of digestive tract; Z90.79 Acquired absence of other genital organ(s)
CPT/HCPCS: 00910; 53899; 82962; 85610; 86850; 86900; 86901; 99285; J7030; 90686; A4216; J2405

== ENCOUNTER → 2021-03-17 12:22 | Outpatient (CLI) | payer BC, SELFPAY | PROVIDERS: PCP Internal Medicine; Referring Provider Urology; Visit Provider Urology | DX: R31.0 Gross hematuria (principal) | CPT/HCPCS: 87086 ==

== ENCOUNTER → 2021-04-12 11:14 | Outpatient (CLI) | payer BC, SELFPAY | PROVIDERS: PCP Internal Medicine; Visit Provider Urology | DX: R35.0 Frequency of micturition (principal) | CPT/HCPCS: 87086 ==

== ENCOUNTER → 2021-04-18 | Outpatient (CLI) | payer BC, SELFPAY | END | disposition home or self-care (01) | LOC: LABSPEC 13:32 | PROVIDERS: PCP Internal Medicine; Referring Provider Physician Assistant Surgical; Visit Provider Physician Assistant Surgical | DX: Z20.822 Contact with and (suspected) exposure to COVID-19 (principal) | CPT/HCPCS: 87635; U0005; U0003 ==

== ENCOUNTER 2021-05-12 13:47 | Outpatient (CLI) | payer BC, SELFPAY | END 2021-05-12 23:59 | disposition short-term general hospital (02) | LOC: LAB 13:49 | PROVIDERS: PCP Internal Medicine; Visit Provider Urology | DX: R97.20 Elevated prostate specific antigen [PSA] (principal) | CPT/HCPCS: 36415; 84153 ==

== ENCOUNTER 2022-06-22 10:34 | Emergency (ER) | payer BC, SELFPAY ==
[2022-06-22 10:35] VITALS: BP 169/81; PULSE 79; RESP 18; TEMP 36.6; O2SAT 95; BMI 28.5
--- NOTE | 2022-06-22 10:44 | VDLE_ITS ---
Reason For Study: pain RIGHT GSV is normal. CFV is compressible, spontaneous, phasic, competent and demonstrates normal augmentation. FV is compressible, spontaneous, phasic, competent and demonstrates normal augmentation. POP V is compressible, spontaneous, phasic, competent and demonstrates normal augmentation. T/P Trunk is compressible. PTV is compressible. RT PerV is compressible. Procedure This is a venous duplex using B-mode, color flow and spectral Doppler. Exam performed portable in ED. The exam was abbreviated due to the COVID 19 protocol. The exam was diagnostic. A preliminary report was called and/or faxed to Dr. Lam. VL/Venous Duplex US, Unilateral Interpretation Summary Deep veins of the right lower extremity are patent and compressible segmentally . There is no evidence of right lower extremity deep vein thrombosis. The right great sapheno us vein appears patent and compressible segmentally. Ordering Physician: Ryan Lam Performed By: Caleb Powell RVT
--- NOTE | 2022-06-22 11:03 | ED.VIS.LOWEX ---
HPI History of Present Illness Chief Complaint: Lower Extremity Injury Informant: patient and spouse/S.O. Associated Symptoms Associated Symptoms: Negative for Parasthesia, Weakness or Loss of Funtion Narrative Narrative: Gradual onset pain in the right calf for the past 3 weeks. Lately they have noticed swelling in the ankle which is new. He had left foot surgery 3 or 4 months ago and has recovered well from that. No history of DVTs. Has been getting around although now the pain in his right lower leg makes it harder to get around, it is worse with walking and moving. He denies any chest pain, shortness of breath, palpitations. He takes no anticoagulants for any reason. He cannot recall any injury. [facility] Medical History (Updated 06/22/22 @ 11:[address] Ryan Lam MD) Alcohol abuse Alcohol use Arthritis Diabetes Former smoker Gastric reflux High cholesterol History of diverticulitis History of irregular heartbeat History of ulceration Hx of thyroid nodule Hypertension Irregular heart beat Rash Rheumatoid arthritis Wears glasses Home Medications atorvastatin 40 mg tablet 40 mg PO QHS cholesterol 09/04/16 [History Last Taken 02/09/21] dapagliflozin 5 mg tablet (Farxiga) 5 mg PO DAILY diabetes 09/04/16 [History Last Taken 02/08/21] losartan 50 mg tablet (Cozaar) 50 mg PO DAILY HTN 09/04/16 [History Last Taken 02/09/21] adalimumab 40 mg/0.4 mL subcutaneous pen kit (Humira(CF) Pen) 40 mg subcut .EVERY OTHER WEEK arthritis 12/14/20 [History Last Taken 01/27/21] amlodipine 10 mg tablet 10 mg PO DAILY blood pressure 12/14/20 [History Last Taken 02/09/21] insulin degludec 100 unit/mL (3 mL) subcutaneous pen (Tresiba FlexTouch U-100 insulin) 30 unit subcut DAILY diabetes 12/14/20 [History Last Taken 02/08/21] meloxicam 15 mg tablet 15 mg PO QHS arthritis 12/14/20 [History Last Taken 02/08/21] multivitamin 1 tab PO DAILY supplement 12/14/20 [History Last Taken 02/09/21] sitagliptin phos 100 mg-metformin ER 1,000 mg tablet,extend rel 24h mp (Janumet XR) 1 tab PO DAILY diabetes 12/14/20 [History Last Taken 02/08/21] cephalexin 500 mg capsule 500 mg PO BID #14 caps 02/11/21 [Rx Last Taken Unknown] Allergy/AdvReac Type Severity Reaction Status Date / Time ciprofloxacin [From Cipro] Allergy Nausea/Vom/ Verified 02/10/21 01:17 Diarrhea ciprofloxacin HCl Allergy Nausea/Vom/ Verified 02/10/21 01:17 [From Cipro] Diarrhea codeine Allergy Itching Verified 02/10/21 01:17 Surgical History (Updated 02/12/21 @ 02:47 by Michaelle Mcniell) History of appendectomy History of cholecystectomy Hx laparoscopic cholecystectomy Hx of colectomy S/P TURP Social History Smoking Status: Former smoker substance use type: does not use ROS ROS ED Constitutional Constitutional ED: Denies chills or fever(s) Cardiovascular Cardiovascular: Denies chest pain, palpitations or syncope Respiratory/Chest Respiratory/Chest: Denies cough, dyspnea or dyspnea on exertion Musculoskeletal Musculoskeletal: Reports extremity pain; Denies neck pain Integumentary Denies Abrasions, rash or wounds Neurologic Neurologic: Denies paresthesias or weakness EXAM Physical Exam Const Vital Signs: 06/22/22 10:35 Temperature 97.9 F Temperature Source Temporal Pulse Rate 79 Respiratory Rate 18 Blood Pressure 169/81 H Blood Pressure Mean 110 Pulse Ox 95 Oxygen Delivery Method Room Air Positive well nourished and well developed General Appearance ED: well developed and NAD Neck full ROM and supple Back/Spine normal ROM and normal to inspection Extremity full ROM Extremity Narrative: Right calf tenderness no palpable cord. Compartments soft and nondistended throughout the right lower extremity. No tenderness popliteal fossa or thigh. There is some light ecchymosis down in the medial aspect of the right foot, in the arch area none of this is tender. He has swelling in the ankle that is not present on the left. 2+/4 dorsalis pedis pulse with brisk cap refill all toes. Neuro oriented x3, no focal motor deficits and no sensory deficits noted Sensorium / Orientation: alert Psych mental status grossly normal and thought process normal Skin no wounds Rashes: no rashes MDM MDM MDM Narrative Medical decision making narrative: Duplex venous ultrasound right lower extremity negative for any superficial or deep venous thrombosis. Given the ecchymosis layering in his foot, I suspect maybe he had a minor calf muscle tear that could have been causing this. Supportive care advised and outpatient follow-up. Discharge Plan Triage Chief Complaint: Lower Extremity Injury ED Provider: Ryan Lam Dx/Rx/DC Orders Clinical Impression: Gastrocnemius muscle tear Instructions: ED Muscle Strain, Extremity Prescriptions: No Action losartan [Cozaar] 50 MG tablet 50 mg PO DAILY atorvastatin 40 MG tablet 40 mg PO QHS Farxiga 5 MG tablet 5 mg PO DAILY multivitamin Tablet 1 tab PO DAILY meloxicam 15 mg tablet 15 mg PO QHS amlodipine 10 mg tablet 10 mg PO DAILY Label Comments: TAKE 1 TABLET BY MOUTH EVERY DAY Janumet XR 100-1,000 mg tablet, ER multiphase 24 hr 1 tab PO DAILY insulin degludec [Tresiba FlexTouch U-100] 100 unit/mL (3 mL) insulin pen 30 unit SUBCUT DAILY Label Comments: INJECT 30 UNITS SUB Q EVERY DAY Humira(CF) Pen 40 mg/0.4 mL pen injector kit 40 mg SUBCUT .EVERY OTHER WEEK cephalexin 500 mg capsule 500 mg PO BID Qty: 14 0RF Primary Care Provider: Ross Flynn Referrals: Ross Flynn DO [Primary Care Provider] - (call for follow up appt within next week or 2) Disposition Disposition: Home, Self Care
[2022-06-22 11:10] VITALS: BP 154/68; PULSE 72; RESP 16; O2SAT 99
== END 2022-06-22 11:23 | disposition home or self-care (01) ==
LOC: ED 11:16
PROVIDERS: Emergency Provider Emergency Medicine; PCP Internal Medicine; Visit Provider Emergency Medicine
DX: S86.111A Strain of other muscle(s) and tendon(s) of posterior muscle group at lower leg level, right leg, initial encounter (principal); Z87.891 Personal history of nicotine dependence; E78.00 Pure hypercholesterolemia, unspecified; I10 Essential (primary) hypertension; X58.XXXA Exposure to other specified factors, initial encounter
CPT/HCPCS: 93971; 99282

== ENCOUNTER → 2022-09-12 | Outpatient (CLI) | payer BC, SELFPAY ==
[2022-09-12 18:39] LABS: Microalbumin,Random Urine 29.1 mg/L (NO RANGE EST.)
[2022-09-12 18:46] LABS: Vitamin B12 770 pg/mL (211-911); Vitamin D,25 Hydroxy 34.3 ng/mL
[2022-09-12 19:47] LABS: ALB/GLOB Ratio 1.1 RATIO (0.9-2.4); AST(SGOT) 25 U/L (15-37); Alanine Aminotransfer ALT/SGPT 42 U/L (16-61); Alkaline Phosphatase 98 U/L (45-117); Anion Gap 7 (5-15); BUN 22 mg/dL (7-18); BUN/Creat Ratio 34.3 RATIO (10-20); Chloride 107 mmol/L (98-107); Cholesterol 130 mg/dL (200); Creatinine, Serum 0.64 mg/dL (0.70-1.30); EST Glomerular Filtration Rate 132 mL/min (>60); Est Glom Filt Rate - Afr Amer 159 mL/min (>60); Globulin 3.8 g/dL (2.2-4.2); Glucose 154 mg/dL (74-106); High Density Lipoprotein 41 mg/dL; Potassium 3.8 mmol/L (3.5-5.1); Protein, Total 7.8 g/dL (6.4-8.2); Sodium Level 138 mmol/L (136-145); Triglycerides 147 mg/dL; Very Low Density Lipoprotein 29 mg/dL (5-40)
== END | disposition home or self-care (01) ==
LOC: MTLAB 16:57
PROVIDERS: PCP Family Medicine; Referring Provider Family Medicine; Visit Provider Family Medicine
DX: M06.9 Rheumatoid arthritis, unspecified (principal); E78.2 Mixed hyperlipidemia
CPT/HCPCS: 36415; 80053; 80061; 82043; 82306; 82607

== ENCOUNTER 2022-09-27 12:00 | Outpatient (RCR) | payer BC, SELFPAY ==
--- NOTE | 2022-09-07 09:08 | HP.PTEVAL ---
Patient's Visit Information ANTON RUTLEDGE is a 66 year old M referred to Physical Therapy by FABIANO KIRK with a diagnosis of R achilles rupture s/p repair 07/04. Date of Evaluation: 09/07/22 Physical Therapist: Mayito Gomez, DPT, OCS, CSCS - Visit Plan Frequency: 1-2x /Week Duration: 4-6 Weeks Plan: weekly for progression of HEP of gastroc/soleus/achilles strength, gait progression and proprioception. Next session to more heel raises, challenge proprioception with FW weight shift, step and recover, PTB for PF - Subjective R achilles tendon rupture not sure how. Started with a little discomfort but then got better. Swelled up 3 weeks later and had a rupture of achilles. Had a lot of pain at that point and swollen. Had MRI and was ruptured. That was July 04 surgery to repair it. Been in boot since then for until last week and then it is gone. Also back to work. 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 Has a little pain but feels like he is walking fine. Needs to lift 8# and doing one at a time instead of two right now. Life is pretty normal but cannot walk fast. Steps are no problem. Does them at work often. HEP: none. Hobbies include walkng a little bit and working in yard but is not doing them and taking help from neighbor but thinks he could. precuation is no walk too much and care ful on steps. - Pain R lower leg Pain Intensity (Out of 10): 0 Pain Intensity Range: 0, 2 - Objective R SLS unable, L 5-8 seconds. AROM R ankle 7 DF 50 PF, inv and ev WFL and symmetircal with L. No pain. foot mechanics are symmetrical and WFL. strength PF 3+ R and 4+ L, inv/ev 4-, PF L 4+, Df 4+ B. Walks I but avoids push off on R and pushes with hip. Steps down onto R only and sideways to avoid PF. Reciprocal up. No problems or concerns with incision today from patient. reflexes 1/3 patella and achilles B. sensation LE WNL to gross lgiht touch. - Balance/Special Test Scores Lower Extremity Functional Score: 68 - Goals Goal 1:: I managment of progression of ex strengthen ankles and proprioception. Goal Time Frame: 2-4 Weeks Goal 2:: SLS R 10 seconds without LOB Goal Time Frame: 2-4 Weeks Goal 3:: Walk without gait deviations and steps reciprocal and normal Goal Time Frame: 4-6 Weeks - Rehabilitation Potential Physical Therapy Diagnosis: S/p R achilles rupture and repair. Rehabilitation Potential: Good - Anticipated Interventions Patient/Client Instruction: Educate patient on: Condition, Plan of Care For the Purpose of:: To improve nutrient delivery to tissue, To improve muscle performance and motor function, To increase tolerance to activity/condition/position, To improve ability of physical actions for home/community/work/leisure, To improve gait and locomotor functions Therapeutic Exercise to Include: Strength training, Balance training, Gait and locomotor training For the Purpose of:: To improve nutrient delivery to tissue, To improve muscle performance and motor function, To increase tolerance to activity/condition/position, To improve ability of physical actions for home/community/work/leisure, To improve gait and locomotor functions Thank you for the opportunity to evaluate your patient. For Medicare and Medicare HMO plans, please review the plan of care and approve it. It will need to be FAXED BACK to us at [phone] for Medicare purposes. For Medicare only, by signing this I certify the plan of care. Please let me know if there are questions or concerns regarding this plan of care. Physician Signature: Date:
--- NOTE | 2022-09-27 12:21 | HP.PTREVAL_ITS ---
FABIANO KIRK, It has been my pleasure to treat ANTON RUTLEDGE over the last 3 visits for R achilles rupture s/p repair 07/04. Please see the progress note below for an update on the physical therapy plan of care! Subjective: Doing well adn getting better. Only slight pain sometimes if moves it or pivots. No lingering pain. 05/08. Will see doctor next Saturday. Overall is 80% better. sleep is good. Feels like one leg shorter than another. Activities are normal at home. Avoids walking alot at work. Otherwise doing everything he would normally do. HEP going well. Using pruple band. Objective/Function: AROM is 55 PF to 4 DF. Still weak on R PF 4-, unable to manage body weight with this which gives him a limp avoiding pushoff R and uses heel to come down steps rather than forefoot. Plan Plan: Continue daily ex and f/u two weeks. To doctor next week. Balance/Gait/Functional tests - Balance/Special Test Scores Lower Extremity Functional Score: 68 Goals Goal 1:: I managment of progression of ex strengthen ankles and proprioception. Goal Time Frame: 2-4 Weeks Goal Progress: Progressing Goal 2:: SLS R 10 seconds without LOB Goal Time Frame: 2-4 Weeks Goal Progress: 5 seconds Goal 3:: Walk without gait deviations and steps reciprocal and normal Goal Time Frame: 4-6 Weeks Anticipated Interventions Patient/Client Instruction: Educate patient on: Condition, Plan of Care For the Purpose of:: To improve nutrient delivery to tissue, To improve muscle performance and motor function, To increase tolerance to activity/conditi on/position, To improve ability of physical actions for home/community/work/leisure, To improve gait and locomotor functions Therapeutic Exercise to Include: Strength training, Balance training, Gait and locomotor training For the Purpose of:: To improve nutrient delivery to tissue, To improve muscle performance and motor function, To increase tolerance to activity/condition/position, To improve ability of physical actions for home/community/work/leisure, To improve gait and locomotor functions Please do not hesitate to contact me at [phone] by phone or if you have questions or concerns regarding this new plan of care! Sincerely, Mayito Gomez, DPT, OCS, CSCS
--- NOTE | 2022-11-05 14:03 | HP.PT.NRP ---
Patient Information Patient Information: ANTON RUTLEDGE was seen in my office for initial evaluation on 09/07/22. The following Plan of Care was established for this patient: POC Established Initial Frequency: 1-2x /Week Initial Duration: 4-6 Weeks Anticipated Interventions Patient/Client Instruction: Educate patient on: Condition and Plan of Care For the Purpose of:: To improve nutrient delivery to tissue, To improve muscle performance and motor function, To increase tolerance to activity/condition/position, To improve ability of physical actions for home/community/work/leisure and To improve gait and locomotor functions Therapeutic Exercise to Include: Strength training, Balance training and Gait and locomotor training For the Purpose of:: To improve nutrient delivery to tissue, To improve muscle performance and motor function, To increase tolerance to activity/condition/position, To improve ability of physical actions for home/community/work/leisure and To improve gait and locomotor functions Last Seen Last Seen: This patient was last seen in our office 09/27/22. Pertinent comments regarding their Physical therapy will appear below: Pt seen 3 visits of HEP and gait progression and was 80% better. He was to f/u 2 weeks later prior to doctor visit to ensure strength coming along but cancelled that visit and did not reschedule. at this point, it has been over 5 weeks and I will discontinue due to nonattendance. At this point I will be discontinuing this patient from physical therapy. I would be happy to see this patient again in the future if found appropriate by the physician. Thank you! Mayito Gomez, DPT, OCS, CSCS Balance/Gait/Functional tests Balance/Special Test Scores Lower Extremity Functional Score: 68
== END 2022-09-27 19:00 | disposition home or self-care (01) ==
LOC: PT 12:00
PROVIDERS: PCP Internal Medicine
DX: S86.011D Strain of right Achilles tendon, subsequent encounter (principal)
CPT/HCPCS: 97110; 97161

== ENCOUNTER → 2023-05-16 | Outpatient (CLI) | payer BC, SELFPAY ==
[2023-05-16 13:01] LABS: ALB/GLOB Ratio 1.1 RATIO (0.9-2.4); AST(SGOT) 22 U/L (15-37); Alanine Aminotransfer ALT/SGPT 37 U/L (16-61); Alkaline Phosphatase 93 U/L (45-117); Anion Gap 3 (5-15); BUN 30 mg/dL (7-18); BUN/Creat Ratio 46.6 RATIO (10-20); Calcium,Total 9.6 mg/dL (8.5-10.1); Chloride 108 mmol/L (98-107); Cholesterol 165 mg/dL (200); Creatinine, Serum 0.64 mg/dL (0.70-1.30); EST Glomerular Filtration Rate 131 mL/min (>60); Est Glom Filt Rate - Afr Amer 158 mL/min (>60); Globulin 3.7 g/dL (2.2-4.2); Glucose 104 mg/dL (74-106); High Density Lipoprotein 49 mg/dL; Potassium 3.6 mmol/L (3.5-5.1); Protein, Total 7.7 g/dL (6.4-8.2); Sodium Level 138 mmol/L (136-145); Triglycerides 132 mg/dL; Very Low Density Lipoprotein 26 mg/dL (5-40)
== END | disposition home or self-care (01) ==
LOC: MFPLAB 10:25
PROVIDERS: PCP Family Medicine; Visit Provider Family Medicine
DX: I10 Essential (primary) hypertension (principal); E78.2 Mixed hyperlipidemia
CPT/HCPCS: 36415; 80053; 80061

== ENCOUNTER → 2023-12-13 | Outpatient (CLI) | payer BC, SELFPAY ==
--- NOTE | 2023-12-13 10:50 | US_ITS ---
EXAM: US RETROPERITONEAL LIMITED, RENAL CLINICAL INDICATION: right flank pain and hematuria. concern hydronephrosis TECHNIQUE: Limited grayscale and color Doppler sonographic evaluation of the retroperitoneum was performed. COMPARISON: No relevant prior studies available. FINDINGS: RIGHT KIDNEY: Right kidney measures 13.7 cm in length. 2 cm lower pole right renal cyst. No follow-up indicated. No hydronephrosis. No shadowing calculus. No perinephric collection is demonstrated. LEFT KIDNEY: Normal. No hydronephrosis. No shadowing calculus. No perinephric collection is demonstrated. Left kidney measures 12.3 cm in length. BLADDER: Prevoid bladder volume is 310 cc. Postvoid bladder volume is 31 cc. SOFT TISSUES: The prostate gland is enlarged measuring 6.3 x 5.3 x 4.5 cm with a volume of 78.7 ml. US/Kidney and Bladder IMPRESSION: 1. Normal-sized kidneys without hydronephrosis. 2. Prostatomegaly. Electronically Signed: Marco A Cheatham MD at 15:09 EDT ,
== END | disposition home or self-care (01) ==
LOC: US 10:47
PROVIDERS: PCP Family Medicine; Referring Provider Family Medicine; Visit Provider Family Medicine
DX: R10.9 Unspecified abdominal pain (principal); R31.9 Hematuria, unspecified
CPT/HCPCS: 76770

== ENCOUNTER → 2024-02-13 | Outpatient (CLI) | payer BC, SELFPAY ==
--- NOTE | 2024-02-13 13:04 | RAD_ITS ---
HISTORY: NECK PAIN. TECHNIQUE: XR Spine Cervical 6 or More Views. COMPARISON: None. FINDINGS: VERTEBRAE: Vertebral body heights maintained. No acute fracture identified. ALIGNMENT: 4 mm anterolisthesis of C5-6 in neutral position, unchanged with flexion maneuver and mildly reduced with extension maneuver. Preservation of the cervical lordosis. INTERVERTEBRAL DISCS: Degenerative osteophytes at multiple levels. Foraminal narrowing of C3-4, C4-5. Intervertebral disc space with endplate changes at C6-7. SOFT TISSUES: No significant prevertebral soft tissue swelling. RAD/Cerv Spine Obl/Flex/Ext Comp IMPRESSION: No acute fracture or dislocation identified in the cervical spine. Mild anterolisthesis of C5-6. Degenerative disc disease at C6-7. Electronically Signed: Ching Ferrell MD at 14:42 EDT ,
== END | disposition home or self-care (01) ==
LOC: MTRAD 12:59
PROVIDERS: PCP Family Medicine; Referring Provider Family Medicine; Visit Provider Family Medicine
DX: M54.2 Cervicalgia (principal)
CPT/HCPCS: 72052